=== PATIENT | female | born 1950 | race Caucasian/White ===

== ENCOUNTER 2018-01-25 09:36 | Day surgery (SDC) | payer OTHER ==
[~2018-01-25] VITALS: Ht 170.2 cm; Wt 101.6 kg
[~2018-01-25 09:36] MED LIST: ANTIVERT25 MG PO; BUSPIRONE HCL5 MG PO; BYSTOLIC10 MG PO; COZAAR100 MG PO; CYANOCOBALAM1000 MCG PO; DOCUSATE SODIU100 MG PO; DOXYCYCLINE HY100 MG PO; EMERGEN-C ELEC1 EACH PO; ERGOCALCIF50000 UNIT PO; HYGROTON25 MG PO; IRON325 M1 PO; MAXZIDE 37.5 M1 EACH PO; MUPIROCIN22 GM TP; NORVASC5 MG PO; OMEPRAZOLE40 M1 PO; OXYCODONE HCL5 MG PO; PERCOCET 5/31 TABLET PO; PRAVACHOL40 MG PO; SYNTHROID25 MCG PO; SYNTHROID50 MCG PO; TRAMADOL HCL50 MG PO; ULTRAM50 MG PO; XARELTO10 MG PO; ZANTAC300 MG PO
[2018-01-25] MEDS ORDERED: BYSTOLIC20 MG PO (09:56)
[2018-01-25 09:58] LABS: BASOPHIL (%) 0.6 % (0-1); BASOPHIL COUNT 0.1 K/uL (0-0.1); EOSINOPHIL COUNT 0.3 K/uL (0-0.3); HEMATOCRIT 45.6 % (36.0-46.0); IMMATURE GRANULOCYTE (%) 0.4 % (0.0-0.7); LYMPHOCYTE (%) 19.6 % (15-42); LYMPHOCYTE COUNT 1.8 K/uL (1.0-2.8); MCH 29.9 PG (29.0-34.0); MCHC 32.9 G/DL (30.0-36.0); MONOCYTE (%) 9.2 % (3-12); MONOCYTE COUNT 0.9 K/uL (0-0.8); NEUTROPHIL (%) 67.2 % (45-76); NEUTROPHIL COUNT 6.3 K/uL (1.8-6.4); PLATELET COUNT 190 K/uL (156-360); RBC DIS.WIDTH-CV 13.8 % (11.8-14.6); RBC DIS.WIDTH-SD 46.4 % (39-53); RED BLOOD COUNT 5.01 M/uL (3.80-5.20); WHITE BLOOD COUNT 9.4 K/uL (4.1-10.2)
[2018-01-25 10:01] VITALS: BP 156/72
[2018-01-25 10:03] VITALS: BP 156/72
[2018-01-25 10:12] VITALS: BP 156/72
[2018-01-25 13:12] VITALS: BP 140/71
[2018-01-25 13:50] VITALS: BP 161/76
== END 2018-01-25 14:05 | disposition home or self-care (01) ==
LOC: SDC 09:36
PROVIDERS: Urology
DX: N20.1 Calculus of ureter (principal); K21.9 Gastro-esophageal reflux disease without esophagitis; E03.9 Hypothyroidism, unspecified; I10 Essential (primary) hypertension; Z85.528 Personal history of other malignant neoplasm of kidney; Z82.49 Family history of ischemic heart disease and other diseases of the circulatory system; Z87.891 Personal history of nicotine dependence; Z90.49 Acquired absence of other specified parts of digestive tract; Z90.710 Acquired absence of both cervix and uterus
CPT/HCPCS: 74420; 82365 90; 85025; C2625; J0690; J1100; J1170; J2405; J2765; J3010; Q0175

== ENCOUNTER 2018-01-26 21:34 | Inpatient (IN) | payer OTHER ==
[~2018-01-26] VITALS: Ht 170.2 cm; Wt 101.9 kg
[~2018-01-26 21:34] MED LIST changes: +BYSTOLIC20 MG PO
[2018-01-26 21:59] LABS: HEMATOCRIT 40.4 % (36.0-46.0); HEMOGLOBIN 13.7 G/DL (11.9-15.5); MCH 30.7 PG (29.0-34.0); MCHC 33.9 G/DL (30.0-36.0); MCV 90.6 FL (83-99); PLATELET COUNT 180 K/uL (156-360); RBC DIS.WIDTH-CV 13.8 % (11.8-14.6); RBC DIS.WIDTH-SD 46.1 % (39-53); RED BLOOD COUNT 4.46 M/uL (3.80-5.20); WHITE BLOOD COUNT 17.5 K/uL (4.1-10.2)
[2018-01-26 22:27] LABS: ALBUMIN 4.2 G/DL (3.2-4.8); ALKALINE PHOSPHATASE 97 IU/L (3-129); ALT (GPT) 23 IU/L (3-49); AST (GOT) 20 IU/L (2-34); CHLORIDE 99 MEQ/L (99-109); GFR ESTIMATE (CALCULATED) 58 mL/min/; GLUCOSE 106 mg/dL (70-99); POTASSIUM 3.7 MEQ/L (3.7-5.4); SODIUM 137 MEQ/L (136-147); TOTAL BILIRUBIN 0.4 MG/DL (0.0-1.0); TOTAL PROTEIN 7.1 G/DL (6.4-8.3); UREA NITROGEN (BUN) 18 mg/dL (9-23)
[2018-01-26 22:44] LABS: APPEARANCE CLOUDY ((CLEAR)); BILIRUBIN NEGATIVE; COLOR BLOODY ((YELLOW)); GLUCOSE (STRIP) NEGATIVE
[2018-01-26 22:45] LABS: BLOOD LARGE; KETONES NEGATIVE; PROTEIN (STRIP) 300
[2018-01-26 22:46] LABS: LEUKOCYTES LARGE; NITRITE NEGATIVE; UROBILINOGEN 0.2 MG/DL (0.2-1.0)
[2018-01-26 22:54] LABS: RED BLOOD CELLS TNTC /HPF (0-5)
[2018-01-26 22:55] LABS: BACTERIA 2+ /HPF; EPITHELIAL CELLS RARE /HPF; MUCUS NONE SEEN /LPF; UCUL ADDED? YES; WHITE BLOOD CELLS 20-30 /HPF (0-5)
[2018-01-26 23:34] LABS: ABS NEUTROPHIL COUNT 13.9; ANISOCYTOSIS NONE SEEN; ATYPICAL LYMPHOCYTE 1.8 %; BAND NEUTROPHILS 1.7 % (0-8.0); BASOPHILS 0.9 %; EOSINOPHIL ABS CT 0.2; EOSINOPHILS 0.9 % (0-5.0); GIANT PLATELETS 1+; LYMPHOCYTES 9.7 % (15.0-45.0); MONOCYTES 7.1 % (0-9.0); PLAT.SUFFICIENCY ADEQUATE; SEG.NEUTROPHILS 77.9 % (46.0-76.0); TOX.VACUOLIZATION 1+
[2018-01-27] MEDS ORDERED: CHLORTHALIDONE25 MG PO (00:27)
[2018-01-27] MEDS ORDERED: ERGOCALCIF50000 UNIT PO (00:27)
[2018-01-27] MEDS ORDERED: PERCOCET 5/31 TABLET PO (00:27)
[2018-01-27] MEDS ORDERED: TRAMADOL HCL50 MG PO (00:27)
[2018-01-27] MEDS ORDERED: BENICAR20 MG PO (00:28)
[2018-01-27] MEDS ORDERED: CIPRO500 MG PO (00:28)
[2018-01-27 03:10] VITALS: BP 163/77
[2018-01-27 08:21] VITALS: BP 136/63
[2018-01-27 08:55] LABS: HEMATOCRIT 38.2 % (36.0-46.0); HEMOGLOBIN 12.5 G/DL (11.9-15.5); MCHC 32.7 G/DL (30.0-36.0); MCV 91.6 FL (83-99); RBC DIS.WIDTH-CV 14.2 % (11.8-14.6); RBC DIS.WIDTH-SD 47.5 % (39-53); RED BLOOD COUNT 4.17 M/uL (3.80-5.20); WHITE BLOOD COUNT 12.6 K/uL (4.1-10.2)
[2018-01-27 09:10] LABS: PLAT.SUFFICIENCY DECREASED; PLATELET COUNT 154 K/uL (156-360)
[2018-01-27 12:18] VITALS: BP 125/61
[2018-01-27 16:54] VITALS: BP 134/52
[2018-01-27 19:35] VITALS: BP 132/63
[2018-01-27 23:20] VITALS: BP 128/58
[2018-01-28 03:44] VITALS: BP 121/60
[2018-01-28 05:47] LABS: BASOPHIL (%) 0.7 % (0-1); BASOPHIL COUNT 0.1 K/uL (0-0.1); EOSINOPHIL (%) 2.5 % (0-5); EOSINOPHIL COUNT 0.2 K/uL (0-0.3); HEMOGLOBIN 12.1 G/DL (11.9-15.5); IMMATURE GRANULOCYTE (%) 0.5 % (0.0-0.7); LYMPHOCYTE (%) 29.6 % (15-42); LYMPHOCYTE COUNT 2.4 K/uL (1.0-2.8); MCH 29.8 PG (29.0-34.0); MCHC 31.8 G/DL (30.0-36.0); MCV 93.6 FL (83-99); MONOCYTE (%) 9.8 % (3-12); MONOCYTE COUNT 0.8 K/uL (0-0.8); NEUTROPHIL (%) 56.9 % (45-76); NEUTROPHIL COUNT 4.6 K/uL (1.8-6.4); PLATELET COUNT 134 K/uL (156-360); RBC DIS.WIDTH-CV 14.2 % (11.8-14.6); RBC DIS.WIDTH-SD 48.7 % (39-53); RED BLOOD COUNT 4.06 M/uL (3.80-5.20); WHITE BLOOD COUNT 8.2 K/uL (4.1-10.2)
[2018-01-28 06:04] LABS: CHLORIDE 105 MEQ/L (99-109); CREATININE 0.8 MG/DL (0.6-1.3); GFR ESTIMATE (CALCULATED) > 59 mL/min/; GLUCOSE 85 mg/dL (70-99); POTASSIUM 3.7 MEQ/L (3.7-5.4); SODIUM 140 MEQ/L (136-147); UREA NITROGEN (BUN) 11 mg/dL (9-23)
[2018-01-28 07:15] VITALS: BP 141/84
[2018-01-28] MEDS ORDERED: PHENAZOPYRIDIN100 MG PO (08:32)
[2018-01-28] MEDS ORDERED: CEFPODOXIME PR200 MG PO (08:32)
[2018-01-28] MEDS ORDERED: DITROPAN5 MG PO (08:32)
[2018-01-28] MEDS ORDERED: TAMSULOSIN HCL0.4 MG PO (08:32)
[2018-01-28 12:09] VITALS: BP 126/64
== END 2018-01-28 15:01 | disposition home or self-care (01) | DRG 863 ==
LOC: EME 21:34 → 2EAST 01-27 01:31 → EDOF 01-27 01:31 → ENRESERV 01-27 02:15 → 2EAST 01-27 02:57
PROVIDERS: Hospitalist; Physician Assistant Medical
DX: T81.4XXA Infection following a procedure, initial encounter (principal); N10 Acute pyelonephritis; I10 Essential (primary) hypertension; D64.9 Anemia, unspecified; E03.9 Hypothyroidism, unspecified; K21.9 Gastro-esophageal reflux disease without esophagitis; G89.18 Other acute postprocedural pain; R31.0 Gross hematuria; E66.9 Obesity, unspecified; Z68.35 Body mass index [BMI] 35.0-35.9, adult; Z85.528 Personal history of other malignant neoplasm of kidney; Z87.891 Personal history of nicotine dependence; Z87.442 Personal history of urinary calculi; Z90.5 Acquired absence of kidney; Z90.710 Acquired absence of both cervix and uterus; Z96.651 Presence of right artificial knee joint
CPT/HCPCS: 36415; 74018; 80048; 80053; 81003; 83605; 85007; 85025; 85027; 87040; 87086; 99281; 99285; J0692; J0696; J2405; J2765; J3010; J7030